=== PATIENT | female | born 1995 | race African-American/Black ===

== ENCOUNTER 2021-03-23 11:00 | Outpatient (RCR) | payer OTHER, SELFPAY ==
--- NOTE | 2021-03-08 16:25 | PTOPEVAL ---
INITIAL PHYSICAL THERAPY EVALUATION and PLAN OF CARE Thank you for referring Baljinder Mallory to [facility].? Baljinder is scheduled to be seen for physical therapy? 1-2x/week for 5 weeks. Please review, sign, date and return this plan of care DELMY. I agree with and certify that the following plan of care is medically necessary. Referring Physician Date Admitting Provider: Attending Provider: Anne Bermudez Referring Provider: *PT Outpatient Evaluation Start: 03/08/21 14:56 Freq: Status: Active Protocol: Document 03/08/21 14:50 LEXUS (Rec: 03/08/21 16:25 LEXUS [id number]) Therapy Assessment Status Assessment Status Assessment Status Evaluation Outpatient Past Medical History Past Medical History Source of Past Medical History Patient Respiratory History Hx Other Respiratory Disorders Yes: seasonal allergies Evaluation Information Problem Diagnosis pelvic and perineal pain Onset Subjective Information 25 wks gestation due date 10 Query Text:As Reported By Patient/ 3rd - Family 1st one - daughter almost 6 - no problems 2nd one - son almost 4 - difficulty with delivery - needed to use vacuum, increase size of son's head - did begin to have pain towards end of . This - pain began not so bad then steadily increased. Late November/early December put on 20# lifting restrictions at work. When pain began to worsen - stepping, turning over in bed, putting on clothing, etc became very painful. Pain begins in pubic area, travels to buttocks and into lower back. Sleeping is difficult - repositioning will result in pain, increased discomfort in the mornings. Mobility is difficult in the mornings. Stairs difficult getting into apartment - once there stays put. 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
--- NOTE | 2021-03-13 13:28 | PCPTNOTE ---
Patient did not show up for scheduled appointment this date. Follow up phone call made - Pt didn't realize that she had an appointment. Reviewed next appointment day and time. Reminded her to perform HEP.
--- NOTE | 2021-03-23 11:24 | PCPTNOTE ---
Patient did not show up for scheduled appointment this date. Called left voicemail about missed appointment and reminded Pt of upcoming appointment on 03/28/21 @ 15:00, with clinic number to call if unable to make it. This is Pt's second N/S.
--- NOTE | 2021-03-28 15:33 | PCPTNOTE ---
Patient did not show up for scheduled appointment this date. Called and left voicemail informing Pt of missed appointment. Reminded pt of N/S policy and informed we would be cancelling all future appointments. Informed Pt if she wished to continue to give us a call @ with in 24 hours, otherwise we will be discharging her. This was the Pt's 3rd N/S.
--- NOTE | 2021-03-29 11:41 | PCPTNOTE ---
Admitting Provider: Attending Provider: Anne Bermudez Patient:Baljinder Mallory Date of :1995 Patient has not returned for any further treatments since 03/08/2021, therefore she will be discharged at this time. Patient?s initial visit was on 03/08/2021 14:30 and she only attended this visit. The goals have not been met. Thank you for referring Baljnider to [facility]. Please review, sign, date and return this discharge summary DELMY. I have been updated about Baljinder's current status and I agree with discharge from the above service at this time. Referring Physician Date
== END 2021-03-30 14:43 | disposition home or self-care (01) ==
LOC: ANHPT 11:00
DX: R10.2 Pelvic and perineal pain (principal)
CPT/HCPCS: 97110; 97162

== ENCOUNTER 2021-04-29 13:56 | Outpatient (CLI) | payer OTHER, SELFPAY ==
--- NOTE | 2021-04-29 13:50 | PC.NURSE ---
Patient transferred to OB department, report given at this time. 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
[2021-04-29 14:14] VITALS: BP 118/53; PULSE 81
--- NOTE | 2021-04-29 14:46 | PC.NURSE ---
Notified Dr. Almonte of patient arrival to OB unit with complaint of lost mucous plug. ROM plus was performed and results were negative for rupture of membranes. FHT reactive. Patient denies contractions, patient reports tightening of abdomen when mucous plug was lost that has since resolved. Mild uterine irritability noted via monitoring, no contractions noted. Order to perform SVE.
[2021-04-29 14:51] VITALS: BP 118/53; PULSE 81
== END 2021-04-29 14:53 | disposition home or self-care (01) ==
LOC: ANHOBPP 14:08 → ANHOBOP 14:09 → ANHOBPP 14:09
PROVIDERS: PCP Obstetrics & Gynecology; Visit Provider Obstetrics & Gynecology
DX: N89.8 Other specified noninflammatory disorders of vagina (principal)
CPT/HCPCS: 59025; 84112; 99199

== ENCOUNTER 2021-06-18 07:07 | Inpatient (IN) | payer OTHER, SELFPAY ==
[2021-06-18] VITALS (42 sets, daily range): BP systolic 112–154; BP diastolic 57–88; PULSE 66–187; RESP 16; TEMP 36.2–37.1; O2SAT 100; BMI 33.0
--- NOTE | 2021-06-18 07:07 | LDADM ---
This patient, Baljinder Mallory, was admitted to Labor/Delivery/Recovery 107 on 06/18/21 at 07:07. Plans for labor, pain management and were discussed with patient. Patient/family oriented to hospital policies and general routines including ID bracelet, bed and alarms, visiting hours, pain management, procedures, bathroom and other care routines, personal items, smoking policy, room service/diet and guest tray routines, security routines, and visiting hours. Patient/Family are encouraged to report perceived risks to care and to ask questions if they do not understand what they are told or what they should do. See OBIX for further documentation.
[2021-06-18 08:01] LABS: Basophils Percent Auto 0.5 % (0.2-1.2); Eosinophils Percent Auto 0.5 % (0-4.4); Hematocrit 30.6 % (37.0-47.0); Hemoglobin 10.5 g/dL (12.0-15.0); Immature Granulocyte Absolute 0.04 K/mm3 (0.00-0.031); Immature Granulocyte Percent A 0.6 % (0-0.5); Lymphocytes Absolute Auto 1.65 K/mm3 (0.9-3.2); Lymphocytes Percent Auto 26.3 % (18.3-44.2); Mean Corpuscular HGB Conc 34.3 g/dl (32-36); Mean Corpuscular Hemoglobin 32.9 pg (26-34); Mean Corpuscular Volume 95.9 fl (80-100); Mean Platelet Volume 12.5 fl (7.4-10.4); Monocytes Absolute Auto 0.7 K/mm3 (0.1-0.6); Monocytes Percent Auto 11.6 % (2.6-8.5); Neutrophils Absolute Auto 3.8 K/mm3 (1.3-6.7); Neutrophils Percent Auto 60.5 % (45.5-73.1); Platelet Count Result 109 k/mm3 (150-375); Red Blood Count 3.19 M/mm3 (4.2-5.4); Red Cell Distribution Width 13.2 % (11.5-14.5); White Blood Count 6.3 K/mm3 (4.5-10.0)
--- NOTE | 2021-06-18 08:09 | WPDOBADMIT ---
Obstetrics - Admit Note Admission Note: 25 y/o here for induction of labor. 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 No s/s of impending outbreak. Pt has been taking valtrex. VSS Contractions absent FHR category 1 Cervix 360/-2 AROM moderate amount of clear odorless fluid Plan: proceed with pitocin induction. Epidural if desired. record reviewed. No pertinent additions to the history and/or any subsequent changes in the physical findings that are not consistent with the expected course of the were found. Additions to the history and/or subsequent changes in the physical findings follow. None.
[2021-06-18] MEDS: LACTATED RINGERS 1,000 ML 125 ML IV CONT ×2 (09:05→14:52)
[2021-06-18] MEDS: OXYTOCIN 30 UNITS/NS 500 ML 30 UNITS/500 ML BAG IV CONT (09:06)
--- NOTE | 2021-06-18 13:29 | WPDANESEPP ---
Anes - Eval Pre Procedure Procedure: labor epidural Date/Time: 06/18/21 13:29 Surgeon: yuridia Pre Op Diagnosis: Induction of Labor Patient Data Age: 25 Gender: F Height: 1.73 m Weight: 98.5 kg Allergies Allergy/AdvReac Type Severity Reaction Status Date / Time No Known Allergies Allergy Verified 04/29/21 14:59 Home Medications Medication Instructions Recorded Confirmed Type vit 15-[id number]-dha 1 pkg PO DAILY 04/29/21 06/18/21 History [ + DHA] valacyclovir [Valtrex] 500 mg PO DAILY 06/18/21 06/18/21 History Laboratory Tests 06/18/21 06/18/21 06/18/21 07:38 07:38 07:38 WBC 6.3 K/mm3 K/mm3 (4.5-10.0) RBC 3.19 M/mm3 L M/mm3 (4.2-5.4) Hgb 10.5 g/dL L g/dL (12.0-15.0) Hct 30.6 % L % (37.0-47.0) MCV 95.9 fl fl (80-100) MCH 32.9 pg pg (26-34) MCHC 34.3 g/dl g/dl (32-36) RDW 13.2 % % (11.5-14.5) Plt Count 109 k/mm3 L k/mm3 (150-375) MPV 12.5 fl H fl (7.4-10.4) Immature Gran % (Auto) 0.6 % H % (0-0.5) Neut % (Auto) 60.5 % % (45.5-73.1) Lymph % (Auto) 26.3 % % (18.3-44.2) [place] % (Auto) 11.6 % H % (2.6-8.5) Eos % (Auto) 0.5 % % (0-4.4) Baso % (Auto) 0.5 % % (0.2-1.2) Lymph # (Auto) 1.65 K/mm3 K/mm3 (0.9-3.2) [place] # (Auto) 0.7 K/mm3 H K/mm3 (0.1-0.6) Eos # (Auto) 0.0 K/mm3 K/mm3 (0-0.3) Baso # (Auto) 0.0 K/mm3 K/mm3 (0.0-0.1) Abs Immat Gran (auto) 0.04 K/mm3 H K/mm3 (0.00-0.031) Absolute Neuts (auto) 3.8 K/mm3 K/mm3 (1.3-6.7) Absolute Nucleated RBC 0.0 K/mm3 K/mm3 (0.0-0.012) Nucleated RBC % 0.0 % % (0.0-0.2) RPR Pending Blood Type B Positive Antibody Screen Negative Patient hx anesthesia problems: none Family hx anesthesia problems: none Results Review: All pre-operative results and documents have been reviewed as part of the pre-operative evaluation. [facility] Social History Social History Smoking status: Never smoker Substance use: never Spiritual care concerns: No Exam Day of Procedure 06/18/21 13:29
[2021-06-18] MEDS: fentaNYL CITRATE INJ (*CRX) 100 MCG/2 ML VIAL 50 MCG IV PUSH (13:39)
[2021-06-18] MEDS: fentaNYL CITRATE INJ (*CRX) 100 MCG/2 ML VIAL IV PUSH (14:50)
--- NOTE | 2021-06-18 15:25 | PM.OBPRVD ---
OB - Delivery Note Procedure Delivery date: 06/18/21 Intrapartal events: None Induction method: per pitocin protocol Delivery monitor: external FHT and external uterine Route of delivery: Episiotomy description: None Laceration Description: Periurethral (Right ) Delivery repair: vicryl (4-0) Quantitative Blood Loss (ml): 251 Anesthesia type: Local Narrative: Mother and baby in stable condition. Cord gasses collected and handed off to staff. Baby Date of : 06/18/21 Time of : 15:04 Weeks of gestation at delivery: 39 gender: Female Weight (pounds): 7 Weight (ounces): 12 presentation: vertex position: Left Occiput Anterior cord vessel description: Nuchal Cord and Reduced
[2021-06-18] MEDS: OXYTOCIN 30 UNITS/NS 500 ML 30 UNITS/500 ML BAG 125 UNITS IV CONT (15:47)
[2021-06-18] MEDS: IBUPROFEN 600 MG TABLET PO (16:25)
[2021-06-18] MEDS: BENZOCAINE 20% AER SPR (*SP) 56 GM CAN 1 SPRAY TOPICAL (17:34)
[2021-06-18] MEDS: WITCH HAZEL 40 PADS 1 PAD TOPICAL (17:34)
--- NOTE | 2021-06-18 18:26 | OBPPTRN ---
Patient transferred to post room #290 via wheelchair. Support person present. Oriented to unit, room, information board, rooming in, admission packet and security measures. Patient verbalizes understanding.
[2021-06-19] VITALS: BP 106/57; PULSE 69; RESP 16; TEMP 36.8; O2SAT 99
[2021-06-19] MEDS: IBUPROFEN 600 MG TABLET PO ×3 (01:40→17:54)
[2021-06-19 04:00] VITALS: BP 108/56; PULSE 60; RESP 16; TEMP 36.8; O2SAT 100
[2021-06-19 05:59] LABS: Hematocrit 27.5 % (37.0-47.0); Hemoglobin 9.1 g/dL (12.0-15.0)
--- NOTE | 2021-06-19 06:24 | P.PNOB_ITS ---
OB - PN: Subj Subjective Date/time seen: 06/19/21 06:24 Patient comments: no complaints and pain well controlled baby status: doing well Narrative: would like DC home later today. OB - PN: Obj Data Labs CBC & Chem 7: 06/19/21 03:48 Labs: Laboratory Results - last 24 hr 06/18/21 06/18/21 06/19/21 07:38 07:38 03:48 WBC 6.3 RBC 3.19 L Hgb 10.5 L 9.1 L Hct 30.6 L 27.5 L MCV 95.9 MCH 32.9 MCHC 34.3 RDW 13.2 Plt Count 109 L MPV 12.5 H Immature Gran % (Auto) 0.6 H Neut % (Auto) 60.5 Lymph % (Auto) 26.3 [place] % (Auto) 11.6 H Eos % (Auto) 0.5 Baso % (Auto) 0.5 Lymph # (Auto) 1.65 [place] # (Auto) 0.7 H Eos # (Auto) 0.0 Baso # (Auto) 0.0 Abs Immat Gran (auto) 0.04 H Absolute Neuts (auto) 3.8 Absolute Nucleated RBC 0.0 Nucleated RBC % 0.0 Blood Type B Positive Antibody Screen Negative OB - PN A/P Plan day: 1 Plan: routine care and discharge home Time Spent With Patient Time: Total time spent is greater than 50% in coordination of care (as documented) at patient's floor/unit and/or counseling patient: Time with patient: less than 15 minutes Exam Narrative: NAD abdomen soft, nontender, fundus firm below the umbilicus Extremities nontender, 1+ edema
--- NOTE | 2021-06-19 06:26 | PM.DS ---
DS: Admitting Diagnosis Discharge Date 06/19/21 Admitting Diagnosis term DS: Discharge Diagnosis Discharge Diagnosis (1) , delivered: Code(s): O80 - Encounter for full-term uncomplicated delivery Status: Acute DS: Summary Hospital Course Hospital Course: Pt had an uncomplicated vaginal delivery and course. Status at Discharge Functional status at discharge: independent ambulation Time Spent with Patient Time attestation: Total time spent providing and/or coordinating discharge services: Time spent: Less than 30 minutes Exam Narrative: NAD abdomen soft, appropriately tender Ext non tender, 1+ edema DS: Data Data Completed and Pending Pending studies at discharge: Pending at discharge 06/18/21 16:01 Surgical [PTH] Routine Labs on day of discharge: Labs from last 24 hours 06/19/21 06/18/21 06/18/21 03:48 07:38 07:38 WBC RBC Hgb 9.1 L Hct 27.5 L MCV MCH MCHC RDW Plt Count MPV Immature Gran % (Auto) Neut % (Auto) Lymph % (Auto) [place] % (Auto) Eos % (Auto) Baso % (Auto) Lymph # (Auto) [place] # (Auto) Eos # (Auto) Baso # (Auto) Abs Immat Gran (auto) Absolute Neuts (auto) Absolute Nucleated RBC Nucleated RBC % RPR Pending Blood Type B Positive Antibody Screen Negative 06/18/21 07:38 WBC 6.3 RBC 3.19 L Hgb 10.5 L Hct 30.6 L MCV 95.9 MCH 32.9 MCHC 34.3 RDW 13.2 Plt Count 109 L MPV 12.5 H Immature Gran % (Auto) 0.6 H Neut % (Auto) 60.5 Lymph % (Auto) 26.3 [place] % (Auto) 11.6 H Eos % (Auto) 0.5 Baso % (Auto) 0.5 Lymph # (Auto) 1.65 [place] # (Auto) 0.7 H Eos # (Auto) 0.0 Baso # (Auto) 0.0 Abs Immat Gran (auto) 0.04 H Absolute Neuts (auto) 3.8 Absolute Nucleated RBC 0.0 Nucleated RBC % 0.0 RPR Blood Type Antibody Screen Discharge Plan Discharge Attending physician on discharge: Lakesha Sheth Discharging Clinician: Lakesha Sheth Anticipated Discharge Date/Time: 06/19/21 17:00 Patient Disposition: Home, Self-Care Activity: may shower and pelvic rest Diet: as tolerated Patient Instructions: Antibiotic Form Stand Alone Forms: General Discharge Information Follow-up/Referrals: Vinod Almonte MD [Physician] - 4 Weeks Discharge Medications: Continued + DHA 28 mg iron- 975 mcg-200 mg Combo Pack 1 pkg PO DAILY RF: 0 Discontinued valacyclovir [Valtrex] 500 mg Tablet 500 mg PO DAILY RF: 0 Date of admission: 06/18/21 07:07 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
[2021-06-19 07:30] LABS: Rapid Plasma Reagin Non-Reactive (NonReactive)
--- NOTE | 2021-06-19 08:00 | PC.NURSE ---
PT introductions made and plan of care discussed per post , pain management, breast feeding, daily care activities and pending discharge to home. PT received such instructions per one to one discussion, mom baby care guide and demonstration. No barriers to learning identified at this time. PT recipient of such instructions this shift. PT verbalized understanding of such care
[2021-06-19 08:15] VITALS: BP 108/68; PULSE 76; RESP 18; TEMP 36.9; O2SAT 100
[2021-06-19 11:30] VITALS: PULSE 79; RESP 16; O2SAT 99
[2021-06-19] MEDS: DOCUSATE SODIUM 100 MG CAPSULE PO ×2 (11:34→17:54)
[2021-06-19] MEDS: MULTIVIT/MIN/PREN/FOL AC/IRON TABLET 1 TAB PO (11:34)
[2021-06-19] MEDS: ACETAMINOPHEN 325 MG TABLET 650 MG PO ×2 (11:35→17:54)
[2021-06-19] MEDS: POLYSACCHARIDE IRON COMPLEX 150 MG CAPSULE PO ×2 (11:36→17:54)
[2021-06-19 12:11] VITALS: BP 116/59; PULSE 79; RESP 16; TEMP 37.2; O2SAT 99
--- NOTE | 2021-06-19 13:50 | PC.NURSE ---
Mother called out for assist with feeding, reporting slight tenderness with latch on both breasts. is able to freely thrust tongue past gum ridge and flange both lips. Skin is intact on both nipples, no redness and bruising noted. Reviewed feeding cues, frequencies, duration of feedings, feeding elimination flow sheet, and signs of adequate intake. Demonstrated stimulation techniques to wake for feeding. Assisted with to breast. Mother attempts infant to breast in cradle with incorrect alignment. Reviewed positioning/alignment in cross cradle, holding breast in ?U? hold and guided asymmetrical latch on. Reviewed rational for each. able to latch correctly within a few attempts. Infant nursed eagerly with steady draws and occasional swallowing noted, some pausing noted. Reviewed signs of a correct latch, effective nursing and suck swallow ratio. Suggested mother stimulate while feeding to increase stimulate, increase intake and to assist with maintaining deep latch. would slip to shallow latch causing tenderness. Demonstrated how to adjust latch more deeply while feeding if needed. Mother reports she can feel the difference in latch with no tenderness. Nipple care reviewed of lanolin after feedings, warm compresses as needed. Instructed mother to call out for RN assistance if she is unable to latch for feeding or she has discomfort with nursing. Instructed feeding should be initiated three hours from start of last feeding or if feeding cues are noted before. Mother voiced understanding of information shared. Mother reports she wishes for discharge to day. Observed mother is able to independently latch infant with appropriate positioning/alignment. eagerly latches on first attempt with long rhythmical draws and occasional swallowing noted. She denies any nipple discomfort, is feeding as required and waking infant to feed if needed. Infant is currently meeting outcomes for weight, output, jaundice and feeding frequencies. Mother states she feels confident to continue effective at home. Reviewed transition to breast milk, signs of adequate intake, and engorgement/relief. Instructed to call ICP if intake/output less than required. Reviewed regular medications mother is taking. Information provided per Samantha. Reviewed community resources on the [employer] website and in the Mom/Baby guide. Information on outpatient services provided. Mother has no further questions at this time. Instructed feeding should be initiated three hours from start of last feeding or if feeding cues are noted before until seen by ICP. Mother voiced understanding of information shared.
--- NOTE | 2021-06-19 17:45 | PC.NURSE ---
PT received discharge instructions per protocol and verbalized understanding of such care.
--- NOTE | 2021-06-19 18:13 | PC.NURSE ---
PT discharged to home ambulatory accompanied by infant and her mother and taken to waiting car. Follow up appts confirmed.
[2021-06-21 11:10] VITALS: BP 117/77; PULSE 67; RESP 16; TEMP 37.3; O2SAT 100
== END 2021-06-19 18:13 | disposition home or self-care (01) | DRG 560 ==
LOC: ANHOB2 06-19 06:26 → ANHLDR 06-20 10:15 → ANHOB2 06-20 10:15
PROVIDERS: Advanced Practice Midwife; Admitting Provider Obstetrics & Gynecology; Visit Provider Obstetrics & Gynecology
DX: O98.52 Other viral diseases complicating childbirth (principal); B00.9 Herpesviral infection, unspecified; O69.81X0 Labor and delivery complicated by cord around neck, without compression, not applicable or unspecified; O62.3 Precipitate labor; O71.82 Other specified trauma to perineum and vulva; Z3A.39 39 weeks gestation of pregnancy; Z37.0 Single live birth
CPT/HCPCS: 36415; 85014; 85018; 85025; 86592; 86850; 86900; 86901; 88307; A9270; J2590; J2795; J3010; J7120